=== PATIENT | female | born 2000 | race Caucasian/White ===

== ENCOUNTER 2023-09-15 12:38 | Emergency (ER) | payer SELFPAY ==
--- NOTE | ~2023-09-15 | US_ITS ---
EXAMINATION: US PELVIS CLINICAL INFORMATION: Abnormal heavy bleeding x2 days COMPARISON: None available. TECHNIQUE: Ultrasound of the pelvis is performed using both transabdominal and transvaginal transducers along with Doppler. Transvaginal imaging is performed due to inadequate visualization transabdominally. FINDINGS: Uterus: The uterus is anteverted and measures 9.6 x 3.0 x 5.1 cm. The double wall endometrial thickness is 0.4 cm. The uterus is smooth in contour and has normal myometrial echogenicity. No visible fibroid. There are small echogenic foci seen in the cervix Adnexa: Both ovaries are visualized. There is normal color flow to the adnexa. There is no ovarian torsion. There is no pelvic ascites or fluid collection. Right ovary measures 4.1 x 1 1.9 x 2.4 cm. Volume 9.8 mL. Left ovary measures 3.9 x 1.5 x 1.6 cm. Volume 4.9 mL US/US pelvic and transvaginal IMPRESSION: Unremarkable uterus. Small echogenic foci in the cervix question inspissated secretions. Unremarkable ovaries.
[2023-09-15 14:06] VITALS: BP 153/81; PULSE 78; RESP 16; TEMP 37; O2SAT 99
--- NOTE | 2023-09-15 14:06 | ED_ITS ---
HPI - General Adult General Chief complaint: Dizziness Stated complaint: cloting vaginal bleeding Time Seen by Provider: 09/15/23 18:34 History of Present Illness ED Provider: Baldemar SWANSON narrative: The patient is a generally healthy 23-year-old female who presents with vaginal bleeding. She says that she had a regular period about 2 weeks ago. Two days ago she developed vaginal bleeding that was spontaneous and which was unexpected because normally her periods are very regular in timing. Additionally the patient said the bleeding over the last 2 days has not been associated with any discomfort that she would typically associated with the regular period. Today she passed a large clot which she found quite unnerving and she came to the emergency room. The patient is not on any hormonal therapy or control of any kind at the moment. Related Data Previous Rx's ?Medication ?Instructions ?Recorded tranexamic acid 650 mg tablet 1,300 mg (2 x 650 mg) PO TID 5 09/15/23 days #30 tabs Allergies Allergy/AdvReac Type Severity Reaction Status Date / Time No Known Allergies Allergy Verified 09/15/23 14:08 Review of Systems 2 Review of Systems: Yes all other systems are reviewed and are negative [facility] Social History Social History Advance Directives: No Advance Directives Information Provided: No Physical Exam ED Vital Signs: Vital Signs - 24 hr 09/15/23 14:06 09/15/23 19:38 Temperature 98.6 F 97.9 F Pulse Rate 78 90 Respiratory Rate 16 20 Blood Pressure 153/81 H 129/82 Pulse Oximetry 99 99 Oxygen Delivery Method Room Air Room Air BMI result Body Mass Index 20.0 Const Other: The patient is awake, alert, pleasant, cooperative. She does not look in any distress. HENMT Other: Face is symmetrical. Mucous membranes moist. Eyes Other: Pupils are round equal, conjunctivae are clear, extraocular movements intact. Neck Other: Moving her neck easily Resp Effort & Inspection: normal respiratory effort Auscultation: clear to auscultation bilaterally Cardio Rate: regular rate Rhythm: regular rhythm Heart sounds: S1 normal heart sound present and S2 normal heart sound present GI Other: The abdomen is soft and nontender Other: Normal external genitalia. I had difficulty finding the patient's cervix when I first inserted the speculum. I then inserted a finger to help determine the location of the cervix an encountered a rigid foreign body in the posterior vaginal vault. I then reinserted the speculum and was able to visualize what looked like a piece of rigid plastic. This was removed using ring forceps. After removal of the foreign body I reinserted the speculum but had difficulty identifying the patient's cervix. On digital vaginal exam I was also unable to palpate what I thought might be the cervix. There seemed to be what I thought was polypoid tissue. Skin Other: The patient's skin was dry and unremarkable Neuro Other: The patient is awake, alert, pleasant, cooperative. Cranial nerves were grossly intact. She moves her extremities normally and had a normal gait. Extrem Other: Extremities are unremarkable Course Course Course Narrative: RME, this is a rapid medical exam performed by Joe Bone please refer to primary provider for complete H&P- 23 year old female presents for evaluation of vaginal bleeding. She reports she got her menstrual cycle 2 weeks ago that was normal for her and then for the last few days has had increase in vaginal bleeding that is heavier than usual and brighter in color than usual. She denies any pain, denies any contraception of any kind. Plan for labs Medications Administered Discontinued Medications Generic Name Dose Route Start Last Admin Trade Name Freq PRN Reason Stop Dose Admin Ketorolac Tromethamine 30 mg 09/15/23 18:48 09/15/23 18:58 Ketorolac Tromethamine 30 Mg/Ml Vial IM 09/15/23 18:49 30 mg ONCE ONE Administration Medical Decision Making Medical Decision Making [facility] Narrative: The patient is a 23-year-old who presents for evaluation of midcycle abnormal vaginal bleeding. She is not and her hemoglobin is normal. She does not look toxic. She was initially given 30 mg of IM ketorolac. Her later performed pelvic exam and found an unusual foreign body in the posterior vaginal vault. After removal of the foreign body I then had difficulty visualizing a normal cervix. On digital exam I felt that she had unusual polypoid like tissue in the region of where I expected the cervix. To further evaluate what I thought were significant cervical abnormalities we obtained pelvic ultrasound. The ultrasound was read as showing ?small echogenic foci in the cervix, question inspissated secretions. The patient was very surprised that a foreign body was found in her vagina and when she was shown the foreign body she could not think of any reason that such a foreign body would be present. She could not identify the nature of the foreign body and neither can I. Patient felt that the vaginal bleeding was probably lessened after removal of the foreign body. She will be discharged with a prescription for tranexamic acid tablets which she may use if she has ongoing bleeding. More importantly she needs to follow up with Gynecology for another exam. Lab Data 09/15/23 14:31 09/15/23 14:31 Labs: Lab Results 09/15/23 Range/Units 14:31 WBC 9.4 (4.8-10.8) X10*3/uL RBC 4.57 (4.20-5.50) X10*6/uL Hgb 13.2 (12.0-16.0) g/dl Hct 40.1 (37.0-47.0) % MCV 87.7 (80.0-98.0) fL MCH 28.9 (27.0-33.0) pg MCHC 32.9 (31.0-35.0) g/dl RDW 12.5 (11.0-16.0) % Plt Count 284 (160-400) X10*3/uL MPV 9.9 (9.4-12.3) fL Immature Gran % (Auto) 0.3 (0.0-0.4) % Neut % (Auto) 70.3 (45-73) % Lymph % (Auto) 19.6 L (20-40) % [place] % (Auto) 4.7 (2-11) % Eos % (Auto) 4.0 (0-4) % Baso % (Auto) 1.1 (0-2) % Lymph # (Auto) 1.8 (1.2-4.9) X10*3/uL [place] # (Auto) 0.4 (0.1-1.2) X10*3/uL Eos # (Auto) 0.4 (0.0-0.4) X10*3/uL Baso # (Auto) 0.1 (0.0-0.2) X10*3/uL Abs Immat Gran (auto) 0.03 (0.00-0.03) X10*3/uL Absolute Neuts (auto) 6.6 (2.0-8.3) x10*3/uL Absolute Nucleated RBC 0.000 (0.0-0.012) X10*3/uL Nucleated RBC % (auto) 0.0 (0.0-0.2) /100WBC PT 12.6 (11.1-13.3) SEC INR 1.0 (0.9-1.1) Sodium 139 (135-145) mmol/L Potassium 4.3 (3.3-5.1) mmol/L Chloride 104 (96-108) mmol/L Carbon Dioxide 26 (22-29) mmol/L Anion Gap 13 (12-20) BUN 10 (9-16) mg/dL Creatinine 0.77 (0.5-1.4) mg/dL Estim Creat Clear Calc 96.3 Estimated GFR > 60 Random Glucose 84 (60-115) mg/dL Calcium 9.5 (8.4-10.2) mg/dL Beta HCG, Quant < 2 mIU/mL Urine Color Yellow Urine Appearance Clear Urine pH 6.5 (5.0-9.0) Ur Specific [place] 1.010 (1.005-1.025) Urine Protein Negative (Neg-Trace) mg/dL Urine Glucose (UA) Negative (Negative) mg/dL Urine Ketones Negative (Negative) mg/dL Urine Blood Large (3+) H (Negative) Urine Nitrite Negative (Negative) Ur Leukocyte Esterase Small (1+) H (Negative) Urine RBC >20 H (0-2) /HPF Urine WBC 0-5 (0-5) /HPF Ur Squamous Epith Cells 0-2 (0-2) /HPF Urine Bacteria None Seen (None Seen) Hyaline Casts 0-2 (0-2) /LPF Blood Type AB Negative Antibody Screen NEGATIVE Discharge Plan Discharge Clinical Impression: Abnormal vaginal bleeding, Foreign body in vagina Patient Disposition: Home, Self-Care Additional Instructions: My hope is that the bleeding will subside on its own at this point. In case you have any significant ongoing bleeding I have sent a prescription for medication called TXA that you may take 3 times a day for 5 days. This medication is useful for vaginal bleeding. I highly recommend that you follow up with a knockdown worker. You have been given the name and number of the Gynecology office here at [facility]. Please contact the office in the morning to set up a prompt follow up appointment for a recheck and further evaluation. Return to the emergency room if significantly worse. Prescriptions: New tranexamic acid 650 mg tablet 1,300 mg PO TID 5 Days Qty: 30 0RF Referrals: Kameron Webber MD [Physician] - (Unusual appearance of cervix) Stand Alone Forms: Work/School Release Interventions: ED Discharge Assessment Last Done: 09/15/23 22:25 Print Language: Polish
[2023-09-15 14:35] LABS: MANUAL DIFF FLAG NO
[2023-09-15 14:37] LABS: Basophils Absolute Auto 0.1 X10*3/uL (0.0-0.2); Basophils Percent Auto 1.1 % (0-2); Eosinophils Absolute Auto 0.4 X10*3/uL (0.0-0.4); Hematocrit 40.1 % (37.0-47.0); Hemoglobin 13.2 g/dl (12.0-16.0); Imm Gran Abs Auto 0.03 X10*3/uL (0.00-0.03); Imm Gran Pct Auto 0.3 % (0.0-0.4); Lymphocytes Absolute Auto 1.8 X10*3/uL (1.2-4.9); Lymphocytes Percent Auto 19.6 % (20-40); Mean Corpuscular HGB Conc 32.9 g/dl (31.0-35.0); Mean Corpuscular Hemoglobin 28.9 pg (27.0-33.0); Mean Corpuscular Volume 87.7 fL (80.0-98.0); Mean Platelet Volume 9.9 fL (9.4-12.3); Monocytes Absolute Auto 0.4 X10*3/uL (0.1-1.2); Monocytes Percent Auto 4.7 % (2-11); Neutrophils Absolute Auto 6.6 x10*3/uL (2.0-8.3); Neutrophils Percent Auto 70.3 % (45-73); Platelet Count 284 X10*3/uL (160-400); Red Blood Count 4.57 X10*6/uL (4.20-5.50); Red Cell Distribution Width 12.5 % (11.0-16.0); White Blood Count 9.4 X10*3/uL (4.8-10.8)
[2023-09-15 14:39] LABS: Appearance Urine Clear; Color Urine Yellow; Glucose Urine UA Negative (Negative); Leukocyte Esterase Urine Small (1+) (Negative); Nitrite Urine Negative (Negative); PH 6.5 (5.0-9.0); UMIC TRIGGER UACC YES; Urine Blood Large (3+) (Negative); Urine Ketones Negative (Negative); Urine Protein Negative (Neg-Trace)
[2023-09-15 14:43] LABS: Prothrombin Time 12.6 SEC (11.1-13.3)
[2023-09-15 14:53] LABS: Bacteria Urine None Seen (None Seen); Hyaline Casts Urine 0-2 /LPF (0-2); RBC Urine >20 /HPF (0-2); Squamous Epithelial Cell Urine 0-2 /HPF (0-2); UACC Culture Trigger YES; WBC Urine 0-5 /HPF (0-5)
[2023-09-15 14:57] LABS: Anion Gap 13 (12-20); Blood Urea Nitrogen 10 mg/dL (9-16); Calcium 9.5 mg/dL (8.4-10.2); Carbon Dioxide 26 mmol/L (22-29); Chloride 104 mmol/L (96-108); Creatinine Clr Calc Pharmacy 96.3; Estimated Glomerular Filt Rate > 60; Glucose Random 84 mg/dL (60-115); Potassium 4.3 mmol/L (3.3-5.1); Sodium 139 mmol/L (135-145)
[2023-09-15 15:03] LABS: HCG Quantitative < 2 mIU/mL
[2023-09-15] MEDS: Ketorolac Tromethamine 30 MG/ML VIAL IM (18:58)
[2023-09-15 19:38] VITALS: BP 129/82; PULSE 90; RESP 20; TEMP 36.6; O2SAT 99
[2023-09-15 22:25] VITALS: BP 129/82; PULSE 90; RESP 20; TEMP 36.6; O2SAT 99
== END 2023-09-15 22:26 | disposition home or self-care (01) ==
PROVIDERS: Physician Assistant; Emergency Provider Emergency Medicine
DX: T19.2XXA Foreign body in vulva and vagina, initial encounter (principal); W44.B0XA Plastic object unspecified, entering into or through a natural orifice, initial encounter; Y93.9 Activity, unspecified; Y92.9 Unspecified place or not applicable; Y99.9 Unspecified external cause status; N93.9 Abnormal uterine and vaginal bleeding, unspecified
CPT/HCPCS: 36415; 76830; 76856; 80048; 81001; 84702; 85025; 85610; 86850; 86900; 86901; 87086; 96372; 99283; 99284; J1885